=== PATIENT | female | born 2000 | race African-American/Black ===

== ENCOUNTER 2023-02-15 18:01 | Emergency (ER) | payer BC ==
--- OUTSIDE RECORDS SUMMARY | 2023-02-15 18:05 | XMS REPORT | Continuity of Care Document ---
:2000 Author Organization [facility] t Address [address] [facility] [address] [place] [id number] Care Team Providers Name Role Phone Jameel HERZOG, Dylan Cantu Attending Clinician Doctor Unassigned, [place] Attending Clinician Unavailable Payers Payer Name Policy Type Policy Number Effective Date Expiration Date S ource Problems Condition Condition Condition Status Onset Resolution Last Treating Co mments Source Name Details Category Date Date Treatment Clinician Date Anxiety Anxiety Disease Active Univers 8-08 ity of 00:00: [place] 00 [facility] Allergies, Adverse Reactions, Alerts This patient has no known allergies or adverse reactions. Social History Social Habit Start Date Stop Date Quantity Comments Source Alcohol intake [facility] Smoking Status Start Date Stop Date Source Never smoker [facility] Medications Ordered Filled Start Stop Current Ordering Indication Dosage Frequency Signature Comments Components Source Medication Medication Date Date Medication? Clinician (SIG) Name Name SERTRALINE Yes [id number] TAKE 1/2 Univers 25 mg 9-04 TABLET BY ity of tablet 00:00: MOUTH [place] 00 EVERY DAY [facility] SERTRALINE 2019- No [id number] TAKE 1/2 Univers 25 mg 9-04 09-05 TABLET BY ity of tablet 00:00: 00:00 MOUTH [place] 00 :00 EVERY DAY [facility] Branch SERTraline Yes [id number] 12.5mg Take 0.5 Univers 25 mg 8-08 tablets by ity of tablet 00:00: mouth [place] 00 daily. [facility] SERTraline Yes [id number] 12.5mg Take 0.5 Univers 25 mg 8-08 tablets by ity of tablet 00:00: mouth [place] 00 daily. [facility] SERTraline Yes [id number] 12.5mg Take 0.5 Univers 25 mg 8-08 tablets by ity of tablet 00:00: mouth [place] 00 daily. [facility] SERTraline 2018- No [id number] 12.5mg Take 0.5 Univers 25 mg 02-13 tablets by ity of tablet 00:00: 00:00 mouth [place] 00 :00 daily. [facility] SERTraline 2018- No [id number] 12.5mg Take 0.5 Univers 25 mg 02-13 tablets by ity of tablet 00:00: 00:00 mouth [place] 00 :00 daily. [facility] No known No Univers medications ity of [facility] No known No Univers medications ity of [facility] Immunizations Ordered Immunization Filled Immunization Date Status Commen ts Source Name Name [facility] 2017-09-25 Completed University of 00:00:00 [facility] 2017-09-25 Completed University of 00:00: [facility] 2017-09-25 Completed University of 00:00:00 [facility] 2017-09-25 Completed University of 00:00:00 [facility] 2017-09-25 Completed University of 00:00:00 [facility] 2017-09-25 Completed University of 00:00:00 [facility] 2017-09-25 Completed University of 00:00:00 [facility] 2017-05-29 Completed University of 00:00:00 [facility] 2017-05-29 Completed University of 00:00:00 [facility] HPV9 2017-05-29 Completed University of 00:00:00 [facility] 2017-05-29 Completed University of 00:00:00 [facility] HPV9 2017-05-29 Completed University of 00:00:00 [facility] HPV9 2017-05-29 Completed University of 00:00:00 [facility] HPV9 2017-05-29 Completed University of 00:00:00 [facility] HPV9 2017-03-27 Completed University of 00:00:00 [facility] Tdap 2017-03-27 Completed University of 00:00:00 [facility] Meningococcal 2017-03-27 Completed University of Polysaccharide 00:00:00 [facility] katie (groups A, C, Y and Branc h W-135) conjugate vaccine (MCV4P) HPV9 2017-03-27 Completed University of 00:00:00 [facility] Tdap 2017-03-27 Completed University of 00:00:00 [facility] Meningococcal 2017-03-27 Completed University of Polysaccharide 00:00:00 [place] [facility] katie (groups A, C, Y and Branc h W-135) conjugate vaccine (MCV4P) HPV9 2017-03-27 Completed University of 00:00:00 [facility] Tdap 2017-03-27 Completed University of 00:00:00 [facility] Meningococcal 2017-03-27 Completed University of Polysaccharide 00:00:00 [place] [facility] katie (groups A, C, Y and Branc h W-135) conjugate vaccine (MCV4P) [facility] 2017-03-27 Completed University of 00:00:00 [facility] Tdap 2017-03-27 Completed University of 00:00:00 [facility] Meningococcal 2017-03-27 Completed University of Polysaccharide 00:00:00 [place] [facility] katie (groups A, C, Y and Branc h W-135) conjugate vaccine (MCV4P) [facility] 2017-03-27 Completed University of 00:00:00 [facility] Tdap 2017-03-27 Completed University of 00:00:00 [facility] Meningococcal 2017-03-27 Completed University of Polysaccharide 00:00:00 [place] [facility]atie (groups A, C, Y and Branc h W-135) conjugate vaccine (MCV4P) [facility] 2017-03-27 Completed University of 00:00:00 [facility] Tdap 2017-03-27 Completed University of 00:00:00 [facility] Meningococcal 2017-03-27 Completed University of Polysaccharide 00:00:00 [place] [facility]atie (groups A, C, Y and Branc h W-135) conjugate vaccine (MCV4P) [facility] 2017-03-27 Completed University of 00:00:00 [facility] Tdap 2017-03-27 Completed University of 00:00:00 [facility] Meningococcal 2017-03-27 Completed University of Polysaccharide 00:00:00 [place] [facility] katie (groups A, C, Y and Branc h W-135) conjugate vaccine (MCV4P) Varicella 2006-09-19 Completed University of (varivax)(chicken 00:00:00 [place] [facility] pox) Branch Varicella 2006-09-19 Completed University of (varivax)(chicken 00:00:00 [place] [facility] pox) Branch Varicella 2006-09-19 Completed University of (varivax)(chicken 00:00:00 [place] [facility] pox) Branch Varicella 2006-09-19 Completed University of (varivax)(chicken 00:00:00 [place] [facility] pox) Branch Varicella 2006-09-19 Completed University of (varivax)(chicken 00:00:00 [place] [facility] pox) Branch Varicella 2006-09-19 Completed University of (varivax)(chicken 00:00:00 [place] [facility] pox) Branch Varicella 2006-09-19 Completed University of (varivax)(chicken 00:00:00 [place] [facility] pox) Branch HEPATITIS A 2005-08-21 Completed University of 00:00:00 [facility] HEPATITIS A 2005-08-21 Completed University of 00:00:00 [facility] HEPATITIS A 2005-08-21 Completed University of 00:00:00 [facility] HEPATITIS A 2005-08-21 Completed University of 00:00:00 [facility] HEPATITIS A 2005-08-21 Completed University of 00:00:00 [facility] HEPATITIS A 2005-08-21 Completed University of 00:00:00 [facility] HEPATITIS A 2005-08-21 Completed University of 00:00:00 [facility] HEPATITIS A 2004-01-04 Completed University of 00:00:00 [facility] IPV 2004-01-04 Completed University of 00:00:00 [facility] MMR 2004-01-04 Completed University of 00:00:00 [facility] DTAP 2004-01-04 Completed University of 00:00:00 [facility] HEPATITIS A 2004-01-04 Completed University of 00:00:00 [facility] IPV 2004-01-04 Completed University of 00:00:00 [facility] MMR 2004-01-04 Completed University of 00:00:00 [facility] IPV 2004-01-04 Completed University of 00:00:00 [facility] DTAP 2004-01-04 Completed University of 00:00:00 [facility] HEPATITIS A 2004-01-04 Completed University of 00:00:00 [place] [facility] IPV 2004-01-04 Completed University of 00:00:00 [facility] MMR 2004-01-04 Completed University of 00:00:00 [facility] MMR 2004-01-04 Completed University of 00:00:00 [facility] DTAP 2004-01-04 Completed University of 00:00:00 [facility] HEPATITIS A 2004-01-04 Completed University of 00:00:00 [place] [facility] IPV 2004-01-04 Completed University of 00:00:00 [place] [facility] MMR 2004-01-04 Completed University of 00:00:00 [place] [facility] DTAP 2004-01-04 Completed University of 00:00:00 [facility] HEPATITIS A 2004-01-04 Completed University of 00:00:00 [place] [facility] IPV 2004-01-04 Completed University of 00:00:00 [place] [facility] DTAP 2004-01-04 Completed University of 00:00:00 [place] [facility] MMR 2004-01-04 Completed University of 00:00:00 [place] [facility] DTAP 2004-01-04 Completed University of 00:00:00 [facility] HEPATITIS A 2004-01-04 Completed University of 00:00:00 [facility] HEPATITIS A 2004-01-04 Completed University of 00:00:00 [facility] IPV 2004-01-04 Completed University of 00:00:00 [facility] MMR 2004-01-04 Completed University of 00:00:00 [facility] DTAP 2004-01-04 Completed University of 00:00:00 [facility] DTAP 2001-08-01 Completed University of 00:00:00 [facility] HIB 4 Dose Schedule 2001-08-01 Completed Unive rsity of 00:00:00 [facility] Pneumococcal 7 2001-08-01 Completed University of Conjugate, PCV7 00:00:00 [place] [facility] (Prevnar7) Branch DTAP 2001-08-01 Completed University of 00:00:00 [facility] HIB 4 Dose Schedule 2001-08-01 Completed Unive rsity of 00:00:00 [facility] HIB 4 Dose Schedule 2001-08-01 Completed Unive rsity of 00:00:00 [facility] Pneumococcal 7 2001-08-01 Completed University of Conjugate, PCV7 00:00:00 [place] [facility] (Prevnar7) Branch DTAP 2001-08-01 Completed University of 00:00:00 [facility] HIB 4 Dose Schedule 2001-08-01 Completed Unive rsity of 00:00:00 [facility] Pneumococcal 7 2001-08-01 Completed University of Conjugate, PCV7 00:00:00 [place] [facility] (Prevnar7) Branch DTAP 2001-08-01 Completed University of 00:00:00 [facility] HIB 4 Dose Schedule 2001-08-01 Completed Unive rsity of 00:00:00 [facility] Pneumococcal 7 2001-08-01 Completed University of Conjugate, PCV7 00:00:00 [place] [facility] (Prevnar7) Branch Pneumococcal 7 2001-08-01 Completed University of Conjugate, PCV7 00:00:00 [place] [facility] (Prevnar7) Branch DTAP 2001-08-01 Completed University of 00:00:00 [facility] HIB 4 Dose Schedule 2001-08-01 Completed Unive rsity of 00:00:00 [facility] Pneumococcal 7 2001-08-01 Completed University of Conjugate, PCV7 00:00:00 [place] [facility] (Prevnar7) Branch DTAP 2001-08-01 Completed University of 00:00:00 [facility] DTAP 2001-08-01 Completed University of 00:00:00 [facility] HIB 4 Dose Schedule 2001-08-01 Completed Unive rsity of 00:00:00 [facility] Pneumococcal 7 2001-08-01 Completed University of Conjugate, PCV7 00:00:00 [place] [facility] (Prevnar7) Branch DTAP 2001-04-03 Completed University of 00:00:00 [facility] HIB 4 Dose Schedule 2001-04-03 Completed Unive rsity of 00:00:00 [facility] IPV 2001-04-03 Completed University of 00:00:00 [facility] DTAP 2001-04-03 Completed University of 00:00:00 [facility] HIB 4 Dose Schedule 2001-04-03 Completed Unive rsity of 00:00:00 [facility] IPV 2001-04-03 Completed University of 00:00:00 [facility] HIB 4 Dose Schedule 2001-04-03 Completed Unive rsity of 00:00:00 [place] [facility] DTAP 2001-04-03 Completed University of 00:00:00 [facility] HIB 4 Dose Schedule 2001-04-03 Completed Unive rsity of 00:00:00 [place] [facility] IPV 2001-04-03 Completed University of 00:00:00 [place] [facility] IPV 2001-04-03 Completed University of 00:00:00 [place] [facility] DTAP 2001-04-03 Completed University of 00:00:00 [facility] HIB 4 Dose Schedule 2001-04-03 Completed Unive rsity of 00:00:00 [place] [facility] IPV 2001-04-03 Completed University of 00:00:00 [facility] DTAP 2001-04-03 Completed University of 00:00:00 [facility] HIB 4 Dose Schedule 2001-04-03 Completed Unive rsity of 00:00:00 [facility] IPV 2001-04-03 Completed University of 00:00:00 [facility] DTAP 2001-04-03 Completed University of 00:00:00 [facility] DTAP 2001-04-03 Completed University of 00:00:00 [facility] HIB 4 Dose Schedule 2001-04-03 Completed Unive rsity of 00:00:00 [facility] IPV 2001-04-03 Completed University of 00:00:00 [facility] Hep B, Adol or Pedi 2000-12-31 Completed Unive rsity of Dosage 00:00:00 [facility] MMR 2000-12-31 Completed University of 00:00:00 [facility] Hep B, Adol or Pedi 2000-12-31 Completed Unive rsity of Dosage 00:00:00 [facility] Pneumococcal 2000-12-31 Completed University o f Polysaccharide, 00:00:00 [place] [facility] PPSV23 (PNEUMOVAX) Branch Varicella 2000-12-31 Completed University of (varivax)(chicken 00:00:00 [place] [facility] pox) Branch Hep B, Adol or Pedi 2000-12-31 Completed Unive rsity of Dosage 00:00:00 [facility] MMR 2000-12-31 Completed University of 00:00:00 [facility] Pneumococcal 2000-12-31 Completed University o f Polysaccharide, 00:00:00 [place] [facility] PPSV23 (PNEUMOVAX) Branch Varicella 2000-12-31 Completed University of (varivax)(chicken 00:00:00 [place] [facility] pox) Branch Hep B, Adol or Pedi 2000-12-31 Completed Unive rsity of Dosage 00:00:00 [facility] MMR 2000-12-31 Completed University of 00:00:00 [facility] Pneumococcal 2000-12-31 Completed University o f Polysaccharide, 00:00:00 [place] [facility] PPSV23 (PNEUMOVAX) Branch Varicella 2000-12-31 Completed University of (varivax)(chicken 00:00:00 [place] [facility] pox) Branch Hep B, Adol or Pedi 2000-12-31 Completed Unive rsity of Dosage 00:00:00 [facility] MMR 2000-12-31 Completed University of 00:00:00 [facility] MMR 2000-12-31 Completed University of 00:00:00 [facility] Pneumococcal 2000-12-31 Completed University o f Polysaccharide, 00:00:00 [place] [facility] PPSV23 (PNEUMOVAX) Branch Varicella 2000-12-31 Completed University of (varivax)(chicken 00:00:00 [place] [facility] pox) Branch Pneumococcal 2000-12-31 Completed University o f Polysaccharide, 00:00:00 [place] [facility] PPSV23 (PNEUMOVAX) Branch Varicella 2000-12-31 Completed University of (varivax)(chicken 00:00:00 [place] [facility] pox) Branch Hep B, Adol or Pedi 2000-12-31 Completed Unive rsity of Dosage 00:00:00 [facility] MMR 2000-12-31 Completed University of 00:00:00 [facility] Pneumococcal 2000-12-31 Completed University o f Polysaccharide, 00:00:00 [place] [facility] PPSV23 (PNEUMOVAX) Branch Varicella 2000-12-31 Completed University of (varivax)(chicken 00:00:00 [facility] edical pox) Branch Hep B, Adol or Pedi 2000-12-31 Completed Unive rsity of Dosage 00:00:00 [facility] MMR 2000-12-31 Completed University of 00:00:00 [facility] Pneumococcal 2000-12-31 Completed University o f Polysaccharide, 00:00:00 [place] [facility] PPSV23 (PNEUMOVAX) Branch Varicella 2000-12-31 Completed University of (varivax)(chicken 00:00:00 [place] [facility] pox) Branch DTAP 2000-07-24 Completed University of 00:00:00 [facility] Hep B, Adol or Pedi 2000-07-24 Completed Unive rsity of Dosage 00:00:00 [facility] HIB 4 Dose Schedule 2000-07-24 Completed Unive rsity of 00:00:00 [facility] Pneumococcal 7 2000-07-24 Completed University of Conjugate, PCV7 00:00:00 [place] [facility] (Prevnar7) Branch Hep B, Adol or Pedi 2000-07-24 Completed Unive rsity of Dosage 00:00:00 [facility] DTAP 2000-07-24 Completed University of 00:00:00 [facility] Hep B, Adol or Pedi 2000-07-24 Completed Unive rsity of Dosage 00:00:00 [facility] HIB 4 Dose Schedule 2000-07-24 Completed Unive rsity of 00:00:00 [facility] Pneumococcal 7 2000-07-24 Completed University of Conjugate, PCV7 00:00:00 [place] [facility] (Prevnar7) Branch HIB 4 Dose Schedule 2000-07-24 Completed Unive rsity of 00:00:00 [facility] DTAP 2000-07-24 Completed University of 00:00:00 [facility] Hep B, Adol or Pedi 2000-07-24 Completed Unive rsity of Dosage 00:00:00 [facility] HIB 4 Dose Schedule 2000-07-24 Completed Unive rsity of 00:00:00 [facility] Pneumococcal 7 2000-07-24 Completed University of Conjugate, PCV7 00:00:00 [place] [facility] (Prevnar7) Branch DTAP 2000-07-24 Completed University of 00:00:00 [facility] Hep B, Adol or Pedi 2000-07-24 Completed Unive rsity of Dosage 00:00:00 [facility] HIB 4 Dose Schedule 2000-07-24 Completed Unive rsity of 00:00:00 [facility] Pneumococcal 7 2000-07-24 Completed University of Conjugate, PCV7 00:00:00 [place] [facility] (Prevnar7) Branch Pneumococcal 7 2000-07-24 Completed University of Conjugate, PCV7 00:00:00 [place] [facility] (Prevnar7) Branch DTAP 2000-07-24 Completed University of 00:00:00 [facility] Hep B, Adol or Pedi 2000-07-24 Completed Unive rsity of Dosage 00:00:00 [facility] HIB 4 Dose Schedule 2000-07-24 Completed Unive rsity of 00:00:00 [facility] Pneumococcal 7 2000-07-24 Completed University of Conjugate, PCV7 00:00:00 [place] [facility] (Prevnar7) Branch DTAP 2000-07-24 Completed University of 00:00:00 [facility] DTAP 2000-07-24 Completed University of 00:00:00 [facility] Hep B, Adol or Pedi 2000-07-24 Completed Unive rsity of Dosage 00:00:00 [facility] HIB 4 Dose Schedule 2000-07-24 Completed Unive rsity of 00:00:00 [facility] Pneumococcal 7 2000-07-24 Completed University of Conjugate, PCV7 00:00:00 [place] [facility] (Prevnar7) Branch DTAP 2000-03-21 Completed University of 00:00:00 [facility] DTAP 2000-03-21 Completed University of 00:00:00 [facility] Comvax 2000-03-21 Completed University of 00:00:00 [facility] IPV 2000-03-21 Completed University of 00:00:00 [facility] Pneumococcal 7 2000-03-21 Completed University of Conjugate, PCV7 00:00:00 [place] [facility] (Prevnar7) Branch DTAP 2000-03-21 Completed University of 00:00:00 [facility] Comvax 2000-03-21 Completed University of 00:00:00 [facility] IPV 2000-03-21 Completed University of 00:00:00 [facility] Pneumococcal 7 2000-03-21 Completed University of Conjugate, PCV7 00:00:00 [place] [facility] (Prevnar7) Branch Comvax 2000-03-21 Completed University of 00:00:00 [facility] DTAP 2000-03-21 Completed University of 00:00:00 [facility] Comvax 2000-03-21 Completed University of 00:00:00 [facility] IPV 2000-03-21 Completed University of 00:00:00 [facility] Pneumococcal 7 2000-03-21 Completed University of Conjugate, PCV7 00:00:00 [place] [facility] (Prevnar7) Branch IPV 2000-03-21 Completed University of 00:00:00 [facility] DTAP 2000-03-21 Completed University of 00:00:00 [facility] Comvax 2000-03-21 Completed University of 00:00:00 [facility] IPV 2000-03-21 Completed University of 00:00:00 [facility] Pneumococcal 7 2000-03-21 Completed University of Conjugate, PCV7 00:00:00 [place] [facility] (Prevnar7) Branch Pneumococcal 7 2000-03-21 Completed University of Conjugate, PCV7 00:00:00 [place] [facility] (Prevnar7) Branch DTAP 2000-03-21 Completed University of 00:00:00 [facility] Comvax 2000-03-21 Completed University of 00:00:00 [facility] IPV 2000-03-21 Completed University of 00:00:00 [facility] Pneumococcal 7 2000-03-21 Completed University of Conjugate, PCV7 00:00:00 [facility] ical (Prevnar7) Branch DTAP 2000-03-21 Completed University 00:00:00 [facility] Comvax 2000-03-21 Completed University 00:00:00 [facility] IPV 2000-03-21 Completed University 00:00:00 [facility] Pneumococcal 7 2000-03-21 Completed [facility] Conjugate, PCV7 00:00:00 [facility] ical (Prevnar7) [place] Vital Signs Vital Name Observation Time Observation Value Comments Source Systolic blood 2019-02-13 14:59:00 113 mm[Hg] Univer sity of pressure [facility] Diastolic blood 2019-02-13 14:59:00 73 mm[Hg] Unive rsity [facility] Heart rate 2019-02-13 14:59:00 103 /min [facility] Body temperature 2019-02-13 14:59:00 36.5 [facility] height 2019-02-13 14:59:00 162.6 cm [facility] Body weight 2019-02-13 14:59:00 79.379 kg [facility] BMI 2019-02-13 14:59:00 30.04 kg/m2 [facility] Procedures Procedure Date / Time Performed Performing Clinician [facility] e ASSIGNMENT OF BENEFITS 2019-02-13 14:28:15 Doctor Unassigned, No [facility] Encounters Start End Encounter Admission Attending Care Care Encounter Source Date/Time Date/Time Type Type Clinicians Facility Department ID 2019-03-11 2019-03-11 [facility] [id number] Univers 00:00:00 00:00:00 [facility] [id number] [facility] [place] [id number] [place] [facility] [place] [phone] [address] Office Building One 2019-02-17 2019-02-17 Telephone Jameel [facility] [id number] Univers 00:00:00 00:00:00 [facility] [id number] [facility] [place] [id number] [place] [facility] Professio [phone] Sc dical nal [address] [place] [facility] [address] [facility] 2019-02-13 2019-02-13 Office Jameel [facility] [id number] [facility] [place] [facility] 09:30:11 10:29:47 Visit [facility] [id number] [facility] [place] [id number] [place] [facility] Professio [phone] Sc dicnh nal [address] [place] [facility] 2019-02-13 2019-02-13 Orders Doctor NOL[facility] [id number] Univers 00:00:00 00:00:00 Only Unassigned, JAMES [id number] ity of [place] [facility] [id number] [place] as [phone] [place] [address] Branch 2019-02-12 2019-02-12 [facility] [id number] Univers 00:00:00 00:00:00 [facility] [id number] [facility] [place] [id number] [place] [facility] Professio [phone] Sc dical nal [address] [place] [address] Office [address] Results This patient has no known results.
[2023-02-15 19:20] LABS: SARS-CoV-2 Antigen Rapid Res Positive (Negative)
--- NOTE | 2023-02-15 19:32 | EDPHYS ---
Physician Documentation [facility] Name: Brady Plummer Age: 22 yrs Sex: Female : 2000 Arrival Date: 02/15/2023 Time: 18:01 Bed IW1 Private MD: ED Physician Mack Browning HPI: 02/15 19:30 This 22 yrs old Black Female presents to ER via Ambulatory with complaints of Cough, rn Loss Taste/Smell, Positive Covid Test. 19:30 The patient or guardian reports cough, flu symptoms. Onset: The symptoms/episode rn began/occurred yesterday. Severity of symptoms: At their worst the symptoms were mild, in the emergency department the symptoms are unchanged. Pt reports 2 positive COVID tests at home, here for official test and work note. NO sob. No chest pain.. 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 - Social history:: Smoking status: Patient denies any tobacco usage or history of. - Family history:: not pertinent. - Hospitalizations: : No recent hospitalization is reported. ROS: 19:30 Constitutional: + fever Cardiovascular: Negative for chest pain, palpitations, and rn edema, Respiratory: + cough and negative for sob Abdomen/GI: Negative for abdominal pain Neuro: Negative for numbness, tingling, and seizure. Exam: 19:30 Constitutional: This is a well developed, well nourished patient who is awake, alert, rn and in no acute distress. Respiratory: Speaking full sentences, unlabored. No increased work of breathing, no retractions or nasal flaring. Neuro: Awake and alert, GCS 15 Vital Signs: 18:13 BP 144 / 79; Pulse 77; Resp 18; Temp 99.2; Pulse Ox 100% on R/A; Weight 72.57 kg; mb9 Height 5 ft. 4 in. ; Pain 0/10; 19:42 BP 138 / 74; Pulse 74; Resp 18; Pulse Ox 100% on R/A; mb9 18:13 Body Mass Index 27.46 (72.57 kg, 162.56 cm) mb9 18:13 Pain Scale: Adult mb9 MDM: 18:16 Patient medically screened. rn 19:30 Differential Diagnosis: Upper Respiratory Infection Viral Syndrome Other COVID. rn 19:30 Data reviewed: vital signs, nurses notes, lab test result(s), and as a result, I will aprn patient. Counseling: I had a detailed discussion with the patient and/or guardian regarding: the historical points, exam findings, and any diagnostic results supporting the discharge/admit diagnosis, lab results, the need for outpatient follow up, to return to the emergency department if symptoms worsen or persist or if there are any questions or concerns that arise at home. Special discussion: I discussed with the patient/guardian in detail that at this point there is no indication for admission to the hospital. It is understood, however, that if the symptoms persist or worsen the patient needs to return immediately for re-evaluation. 02/15 18:17 Order name: SARS RAPID rn 02/15 19:06 Order name: SARS-COV-2 Antigen Rapid; Complete Time: 19:23 EDMS Administered Medications: No medications were administered Disposition Summary: 02/15/23 19:32 Discharge Ordered Location: Home rn Problem: new rn Symptoms: have improved rn Condition: Stable rn Diagnosis - SARS-associated coronavirus as the cause of diseases classified elsewhere rn Followup: rn - With: Private Physician - When: As needed - Reason: Recheck today's complaints, Re-evaluation by your physician Discharge Instructions: - Discharge Summary Sheet rn - COVID-19 rn - 10 Things You Can Do to Manage Your COVID-19 Symptoms at Home - [facility] (01/21/2021) rn - Viral Illness, Adult rn Forms: - Medication Reconciliation Form rn - Thank You Letter rn - 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
--- NOTE | 2023-02-15 19:32 | ER ---
Nurse's Notes [facility] Name: Brady Plummer Age: 22 yrs Sex: Female : 2000 Arrival Date: 02/15/2023 Time: 18:01 Bed IW1 Private MD: Diagnosis: SARS-associated coronavirus as the cause of diseases classified elsewhere Presentation: 02/15 18:13 Chief complaint: Patient states: "I've had cough for a few days and lost my smell/taste mb9 today. I took two COVID tests at home and they were positive. I want a COVID test and note fro work". Coronavirus screen: Vaccine status: Patient reports being unvaccinated. Ebola Screen: No symptoms or risks identified at this time. Initial Sepsis Screen: Does the patient meet any 2 criteria? No. Patient's initial sepsis screen is negative. Does the patient have a suspected source of infection? No. Patient's initial sepsis screen is negative. Risk Assessment: Do you want to hurt yourself or someone else? Patient reports no desire to harm self or others. Onset of symptoms was 2022. 18:13 Method Of Arrival: Ambulatory mb9 18:13 Acuity: ANNALISA 4 mb9 Triage Assessment: 18:15 General: Appears in no apparent distress. Behavior is calm, cooperative. Pain: Denies mb9 pain. Neuro: [place]ogueira Agitation-Sedation Scale (RASS): 0 - Alert and Calm Level of Consciousness is awake, alert, obeys commands. Cardiovascular: Patient's skin is warm and dry. Respiratory: Reports cough that is Airway is patent Respiratory effort is even, unlabored, Respiratory pattern is regular, symmetrical. GI: Patient currently denies diarrhea, nausea, vomiting. : No signs and/or symptoms were reported regarding the genitourinary system. Derm: Skin is pink, warm \\T\\ dry. Musculoskeletal: Range of motion: intact in all extremities. 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 - Social history:: Smoking status: Patient denies any tobacco usage or history of. - Family history:: not pertinent. - Hospitalizations: : No recent hospitalization is reported. Assessment: 19:42 Reassessment: No changes from previously documented assessment. Patient and/or family mb9 updated on plan of care and expected duration. Pain level reassessed. Patient is alert, oriented x 3, equal unlabored respirations, skin warm/dry/pink. Vital Signs: 18:13 BP 144 / 79; Pulse 77; Resp 18; Temp 99.2; Pulse Ox 100% on R/A; Weight 72.57 kg; mb9 Height 5 ft. 4 in. ; Pain 0/10; 19:42 BP 138 / 74; Pulse 74; Resp 18; Pulse Ox 100% on R/A; mb9 18:13 Body Mass Index 27.46 (72.57 kg, 162.56 cm) mb9 18:13 Pain Scale: Adult mb9 ED Course: 18:10 Patient arrived in ED. mg5 18:15 Triage completed. mb9 18:15 Arm band placed on. mb9 18:16 Mack Browning MD is Attending Physician. rn 18:18 Sofia Will, MARIA M is Primary Nurse. mb9 19:42 No provider procedures requiring assistance completed. Patient did not have IV access mb9 during this emergency room visit. Administered Medications: No medications were administered Outcome: 19:32 Discharge ordered by . rn 19:42 Discharged to home ambulatory. mb9 19:42 Condition: stable 19:42 Discharge instructions given to patient, Instructed on discharge instructions, follow up and referral plans. Demonstrated understanding of instructions, follow-up care. 19:43 Patient left the ED. mb9 Signatures: Mack Browning MD MD rn Breneman, Mary Beth, RN RN Emily Miles mg5 Corrections: (The following items were deleted from the chart) 18:15 18:15 PMHx: Unable to Obtain; mbErinn mbErinn
[2023-02-15 20:05] VITALS: TEMP 99.2; O2SAT 100
[2023-02-15 20:10] VITALS: BP 138/74
== END 2023-02-15 19:43 | disposition home or self-care (01) ==
LOC: ER 18:01
DX: U07.1 COVID-19 (principal)
CPT/HCPCS: 36415; 87811; 99282

== ENCOUNTER → 2023-07-23 | Emergency (ER) | payer BC ==
--- OUTSIDE RECORDS SUMMARY | 2023-07-23 14:20 | XMS REPORT | Continuity of Care Document ---
Author Name Unknown Address [address] [place] [address]. [address] [place] [id number] [facility] Address [address] [facility]. 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 Role Phone Jameel HERZOG, Dylan Cantu Attending Clinician Doctor Unassigned, [place] Attending Clinician U navailable Payers Payer Name Policy Type Policy Number Effective Date Expirati on Date Source Problems Condition Name Condition Details Condition Category Status Onset Date Resolution Date Last Treatment Date Treating Clinician Comments Source Anxiety Anxiety Disease Active 02-13 00:00: 00 [facility] Social History Social Habit Start Date Stop Date Quantity Comments Source Alcohol intake [facility] Sex Assigned At [facility] Smoking Status Start Date Stop Date Source Never smoker [facility] Medications Ordered Medication Name Filled Medication Name Start Date Stop Date Current Medication? Ordering Clinician Indication Dosage Frequency Signature (SIG) Comments Components Source SERTRALINE 25 mg tablet 03-12 00:00: 00 Yes [id number] TAKE 1/2 TABLET BY MOUTH EVERY DAY [facility] SERTRALINE 25 mg tablet 03-12 00:00: 00 03-13 00:00 :00 No [id number] TAKE 1/2 TABLET BY MOUTH EVERY DAY [facility] SERTraline 25 mg tablet 02-13 00:00: 00 Yes [id number] 12.5mg Take 0.5 tablets by mouth daily. [facility] SERTraline 25 mg tablet 02-13 00:00: 00 Yes [id number] 12.5mg Take 0.5 tablets by mouth daily. [facility] SERTraline 25 mg tablet 02-13 00:00: 00 Yes [id number] 12.5mg Take 0.5 tablets by mouth daily. [facility] SERTraline 25 mg tablet 02-13 00:00: 00 03-11 00:00 :00 No [id number] 12.5mg Take 0.5 tablets by mouth daily. [facility] SERTraline 25 mg tablet 02-13 00:00: 00 03-11 00:00 :00 No [id number] 12.5mg Take 0.5 tablets by mouth daily. [facility] No known medications No Un thuy [facility] No known medications No Un thuy [facility] Vital Signs Vital Name Observation Time Observation Value Comments Marge louis Systolic blood pressure 2019-02-13 14:59:00 113 mm[Hg] [facility] Diastolic blood pressure 2019-02-13 14:59:00 73 mm[Hg] [facility] Heart rate 2019-02-13 14:59:00 103 /min [facility] Body temperature 2019-02-13 14:59:00 36.5 Jazz [facility] Body height 2019-02-13 14:59:00 162.6 cm [facility] Body weight 2019-02-13 14:59:00 79.379 kg [facility] BMI 2019-02-13 14:59:00 30.04 kg/m2 [facility] Procedures Procedure Date / Time Performed Performing Clinicia n Source ASSIGNMENT OF BENEFITS 2019-02-13 14:28:15 Docto r Unassigned, [place] [facility] Encounters Start Date/Time End Date/Time Encounter Type Admission Type Attending Clinicians Care Facility Care Department Encounter ID Source 2019-03-11 00:00:00 2019-03-11 00:00:00 Refill Dylan Jorgensen [facility] [id number] [facility] 2019-02-17 00:00:00 2019-02-17 00:00:00 Telephone Dylan Jorgensen [facility] [id number] [facility] 2019-02-13 09:30:11 2019-02-13 10:29:47 Office Visit Dylan Jorgensen [facility] [id number] [id number] [facility] 2019-02-13 00:00:00 2019-02-13 00:00:00 Orders Only Doctor Unassigned, [place] [facility] 1..114 [id number] [facility] 2019-02-12 00:00:00 2019-02-12 00:00:00 Telephone Dylan Jorgensen [facility] 1..114 [id number] [facility]
--- NOTE | 2023-07-23 14:33 | EDPHYS ---
Physician Documentation [facility] Name: Brady Plummer Age: 22 yrs Sex: Female : 2000 Arrival Date: 07/23/2023 Time: 14:17 Bed IW2 Private MD: ED Physician Salomón Deleon HPI: 07/23 14:47 This 22 yrs old Black Female presents to ER via Ambulatory with complaints of Back Pain.rt 14:47 Patient presents to the ED with 3 days of back pain. She states that she strained it rt while lifting up a heavy case of water. Pain is of the lower back, on both sides. Denies numbness, tingling, urinary symptoms. Denies other acute complaints, symptoms are moderate severity, aching nature, nonradiating, no other aggravating or elevating factors.. 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 Flu vaccine is not up to date. - Social history:: Smoking status: Patient denies any tobacco usage or history of. - Family history:: not pertinent. ROS: 14:47 Constitutional: Negative for fever, chills, and weight loss, Cardiovascular: Negative rt for chest pain, palpitations, and edema, Respiratory: Negative for shortness of breath, cough, wheezing, and pleuritic chest pain, Abdomen/GI: Negative for abdominal pain, nausea, vomiting, diarrhea, and constipation, Skin: Negative for injury, rash, and discoloration, Neuro: Negative for headache, weakness, numbness, tingling, and seizure, Psych: Negative for depression, anxiety, suicide ideation, homicidal ideation, and hallucinations, 14:47 Back: Positive for pain at rest, pain with movement, Exam: 14:47 Constitutional: This is a well developed, well nourished patient who is awake, alert, rt and in no acute distress. Head/Face: Normocephalic, atraumatic. Chest/axilla: Normal chest wall appearance and motion. Nontender with no deformity. No lesions are appreciated. Cardiovascular: Regular rate and rhythm with a normal S1 and S2. No gallops, murmurs, or rubs. Normal PMI, no JVD. No pulse deficits. Respiratory: Lungs have equal breath sounds bilaterally, clear to auscultation and percussion. No rales, rhonchi or wheezes noted. No increased work of breathing, no retractions or nasal flaring. Abdomen/GI: Soft, non-tender, with normal bowel sounds. No distension or tympany. No guarding or rebound. No evidence of tenderness throughout. Skin: Warm, dry with normal turgor. Normal color with no rashes, no lesions, and no evidence of cellulitis. MS/ Extremity: Pulses equal, no cyanosis. Neurovascular intact. Full, normal range of motion. Neuro: Awake and alert, GCS 15, oriented to person, place, time, and situation. Cranial nerves II-XII grossly intact. Motor strength 5/5 in all extremities. Sensory grossly intact. Cerebellar exam normal. Normal gait. 14:47 Back: No midline tenderness, mild tenderness to the paraspinal lumbar region, Vital Signs: 14:25 BP 138 / 79; Pulse 98; Resp 18; Temp 98.1; Pulse Ox 100% ; Height 5 ft. 4 in. ; Pain ap3 5/10; 14:25 Pain Scale: Adult ap3 MDM: 14:30 Patient medically screened. rt 14:47 Differential diagnosis: Muscle strain, musculoskeletal pain. Data reviewed: vital rt signs, nurses notes. Test considered but Not performed: MRI: No signs or symptoms to suggest spinal epidural abscess, cauda equina syndrome, MRI not indicated. Counseling: I had a detailed discussion with the patient and/or guardian regarding the historical points, exam findings, and any diagnostic results supporting the discharge/admit diagnosis, the need for outpatient follow up, to return to the emergency department if symptoms worsen or persist or if there are any questions or concerns that arise at home. Administered Medications: No medications were administered Disposition Summary: 07/23/23 14:33 Discharge Ordered Notes: Location: Home rt Problem: new rt Symptoms: have improved rt Condition: Stable rt Diagnosis - Low back pain rt Followup: rt - With: Private Physician - When: 2 - 3 days - Reason: Discharge Instructions: - Discharge Summary Sheet ap3 - Acute Back Pain, Adult rt Forms: - Work release form ap3 - Medication Reconciliation Form rt - Thank You Letter rt - Antibiotic Education rt - Prescription Opioid Use rt - Patient Portal Instructions rt - Leadership Thank You Letter rt Prescriptions: - Cyclobenzaprine 5 mg Oral Tablet - take 1 tablet ORAL route 3 times per day As needed; 15 tablet; Refills: 0, rt Product Selection Permitted Signatures: Lona Morris, RN RN ap3 Salomón Deleon MD MD rt
--- NOTE | 2023-07-23 14:33 | ER ---
Nurse's Notes [facility] Name: Brady Plummer Age: 22 yrs Sex: Female : 2000 Arrival Date: 07/23/2023 Time: 14:17 Bed IW2 Private MD: Diagnosis: Low back pain Presentation: 07/23 14:25 Chief complaint: Patient states: she hurt her back Sunday when she was lifting a case ap3 of water. patient states she had to call off of work the two following days, and was told by her employer that she will need a work note to state she can return to work. patient reports that her current back pain is rated at a 5/10 on the pain scale. Coronavirus screen: At this time, the client does not indicate any symptoms associated with coronavirus-19. Ebola Screen: No symptoms or risks identified at this time. Initial Sepsis Screen: Does the patient meet any 2 criteria? No. Patient's initial sepsis screen is negative. Does the patient have a suspected source of infection? No. Patient's initial sepsis screen is negative. Risk Assessment: Do you want to hurt yourself or someone else? Patient reports no desire to harm self or others. Onset of symptoms was July 21, 2023. 14:25 Method Of Arrival: Ambulatory ap3 14:25 Acuity: ANNALISA 4 ap3 Triage Assessment: 14:27 General: Appears in no apparent distress. Behavior is calm, cooperative, appropriate ap3 for age. Pain: Complains of pain in low back area Pain currently is 5 out of 10 on a pain scale. Pain began 2-3 days ago. Neuro: Level of Consciousness is awake, alert, obeys commands, Oriented to person, place, time, situation. Cardiovascular: Patient's skin is warm and dry. Respiratory: Airway is patent Respiratory effort is even, unlabored, Respiratory pattern is regular, symmetrical. Musculoskeletal: Range of motion: intact in all extremities, Reports pain in low back area. 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 Flu vaccine is not up to date. - Social history:: Smoking status: Patient denies any tobacco usage or history of. - Family history:: not pertinent. Screenin:28 [facility] ED Fall Risk Assessment (Adult) History of falling in the last 3 months, ap3 including since admission No falls in past 3 months (0 pts). Abuse screen: Denies threats or abuse. Nutritional screening: No deficits noted. Tuberculosis screening: No symptoms or risk factors identified. Vital Signs: 14:25 BP 138 / 79; Pulse 98; Resp 18; Temp 98.1; Pulse Ox 100% ; Height 5 ft. 4 in. ; Pain ap3 5/10; 14:25 Pain Scale: Adult ap3 ED Course: 14:21 Patient arrived in ED. mg5 14:27 Triage completed. ap3 14:28 Arm band placed on right wrist. ap3 14:29 Salomón Deleon MD is Attending Physician. rt 14:59 Provided Education on: discharge instructions . ap3 14:59 Patient has correct armband on for positive identification. Adult w/ patient. ap3 14:59 No provider procedures requiring assistance completed. Patient did not have IV access ap3 during this emergency room visit. Administered Medications: No medications were administered Medication: 14:59 VIS not applicable for this client. ap3 Outcome: 14:33 Discharge ordered by . rt 14:59 Discharged to home ambulatory, ap3 14:59 Condition: good 14:59 Discharge instructions given to patient, Instructed on discharge instructions, follow up and referral plans. medication usage, Demonstrated understanding of instructions, follow-up care, medications, Prescriptions given X 1, 14:59 Patient left the ED. ap3 Signatures: Lona Morris RN RN ap3 Salomón Deleon MD MD rt [place] mg5
[2023-07-23 15:20] VITALS: BP 138/79; TEMP 98.1; O2SAT 100
== END ==
LOC: ER 14:17
DX: M54.50 Low back pain, unspecified (principal)
CPT/HCPCS: 99283